=== PATIENT | male | born 1990 | race Caucasian/White ===

== ENCOUNTER 2024-09-14 08:18 | Emergency (ER) | payer OTHER, SELFPAY ==
--- NOTE | ~2024-09-14 | XR_ITS ---
EXAMINATION: XR chest 2V 09/14/2024 09:12 INDICATION: Cough and chest congestion PROCEDURE: 2 view chest COMPARISON: No prior studies for comparison. FINDINGS: The lungs are clear. The cardiomediastinal silhouette is within normal limits. There are no pleural effusions. There is no pneumothorax suspected. IMPRESSION: 1: NO ACUTE CARDIOPULMONARY DISEASE. Reviewed, dictated and finalized at location A.
[2024-09-14 08:39] VITALS: BP 155/104; PULSE 102; RESP 16; TEMP 36.6; O2SAT 98
--- NOTE | 2024-09-14 09:03 | ED_ITS ---
HPI - URI/Sore Throat General Chief Complaint: Upper Respiratory Infection Stated Complaint: SORE THROAT Time Seen by Provider: 09/14/24 09:00 Source: patient and RN notes reviewed Mode of arrival: ambulatory Limitations: no limitations History of Present Illness HPI Narrative: 33-year-old male presents Express Care complaining of upper respiratory symptoms for 2 weeks. Patient reports having cough, chest congestion, mucopurulent sputum, and a sore throat over the last 2 weeks. He feels like his symptoms are worsening does not feel like he is getting much better. Patient denies any chest pain or shortness of breath, ear pain, fevers, body aches, chills, nausea, vomiting, diarrhea. Patient states he has a history of hypertension, depression, anxiety. Related Data Home Medications ?Medication ?Instructions ?Recorded ?Confirmed ?Last Taken ?Type albuterol sulfate 90 mcg/actuation inhalation 09/14/24 Unknown History aerosol inhaler amlodipine 5 mg tablet mg 09/14/24 Unknown History bupropion HCl 150 mg 24 hr tablet, mg PO 09/14/24 Unknown History extended release escitalopram oxalate 10 mg tablet mg 09/14/24 Unknown History losartan 50 mg tablet mg 09/14/24 Unknown History Allergies Allergy/AdvReac Type Severity Reaction Status Date / Time cefprozil (From Cefzil) Allergy Intermediate Rash Verified 09/14/24 08:52 Review of Systems Review of Systems: CONSTITUTIONAL: Denies fever, chills, body aches, or sweats. EYES: Denies visual changes, redness, or discharge. ENT: Negative for rhinorrhea, congestion, or otalgia. Positive for sore throat. CARDIOVASCULAR: Denies chest pain, palpitations, or edema. RESPIRATORY: Positive for cough and chest congestion. Negative for dyspnea. GASTROINTESTINAL: Denies abdominal pain, nausea, vomiting, or diarrhea. GENITOURINARY: Denies dysuria or hematuria. SKIN: Denies rash or itching. MUSCULOSKELETAL: Denies back pain, joint pain, or myalgia. NEUROLOGIC: Denies headache, numbness, or weakness. PSYCHIATRIC: Denies anxiety or depression. All other systems reviewed are negative, except as documented in HPI. PMFSH Comments At the time of my signature, I reviewed and agree with the nursing past medical, surgical, social, and family history. There is no relevant family history pertinent to the patient complaint. Exam Narrative: GENERAL: This is a well-nourished, well-developed adult, in no apparent distress. They are non ill-appearing, nontoxic appearing. HEAD: normocephalic, atraumatic. EYES: Sclera clear/white. Vision is grossly intact. Conjunctiva normal bilaterally. Extraocular movements intact. EARS: External ears normal, auditory canals clear and without drainage, TMs without erythema or perforation. Hearing grossly intact. NOSE: External nose normal with no obvious nasal discharge, nasal turbinates erythemic without swelling, no rhinorrhea. THROAT: Mucous membranes moist, posterior pharynx erythematous without exudate. Uvula is midline. Postnasal drip present. NECK: Neck supple, non-tender without lymphadenopathy, masses or thyromegaly. CARDIOVASCULAR: Regular rate and rhythm without murmurs, gallops, or rubs. RESPIRATORY: Clear to auscultation. Breath sounds equal bilaterally. No wheezes, rales, or rhonchi. SKIN: warm, Dry, intact with no suspicious lesions or rash, good texture and turgor. NEURO: awake, alert, and oriented to person, place and time. There were no obvious focal neurologic abnormalities. EXTREMITIES: No joint tenderness, effusion, or edema noted. BACK: Nontender without deformity. Course Course Emergency Course: Portions of this record may have been created with voice recognition software Level of Care: Express Care Visit Vital Signs Vital signs: Vital Signs Temperature 97.9 F 09/14/24 08:39 Pulse Rate 102 H 09/14/24 08:39 Respiratory Rate 16 09/14/24 08:39 Blood Pressure 155/104 H 09/14/24 08:39 Pulse Oximetry 98 09/14/24 08:39 Temperature 97.9 F 09/14/24 08:39 Pulse Rate 102 H 09/14/24 08:39 Respiratory Rate 16 09/14/24 08:39 Blood Pressure 155/104 H 09/14/24 08:39 Pulse Oximetry 98 09/14/24 08:39 MDM - URI/Sore Throat MDM Narrative Medical decision making narrative: Rapid strep negative. Throat culture pending. Chest x-ray showed. Given patient's symptoms is likely has the purulent bronchitis. Will treat empirically with doxycycline. Discussed physical exam findings. Advised supportive measures and signs/symptoms to go to the ER. Pt is appropriate for outpt treatment and f/u. Differential Diagnosis Differential diagnosis: Likely upper respiratory infection, sinusitis, pharyngitis and other (Pneumonia) Lab Data Attestation: I reviewed the patient's lab results. Labs: Lab Results 09/14/24 Range/Units 09:41 POC Grp A Strep Screen Negative (Negative) Discharge Plan Discharge Clinical Impression: Acute purulent bronchitis Patient Disposition: Home Condition: Stable Instructions: Antibiotic Form, Acute Bronchitis (ED) Additional Instructions: Your rapid strep was negative. Throat culture will be sent off and it is positive we will contact you if it is positive. Your chest x-ray was negative for any evidence of pneumonia or acute findings. Please take the doxycycline as directed. Please wear sunscreen while taking doxycycline if you are going to be outside. You may take Tylenol and ibuprofen as needed for pain or fevers. Drink plenty of fluids and rest. Follow-up with PCP in 3-5 days. If your symptoms worsen, developed chest pain, shortness of breath, or fevers please go to the ER. Patient Language: Latvian Prescriptions: New doxycycline monohydrate 100 mg capsule 100 mg PO BID 7 Days Qty: 14 0RF No Action losartan 50 mg tablet amlodipine 5 mg tablet albuterol sulfate 90 mcg/actuation HFA aerosol inhaler INHALATION escitalopram oxalate 10 mg tablet bupropion HCl 150 mg tablet extended release 24 hr PO Follow-up/Referrals: Daniella,MD Ajay [Primary Care Provider] - Time of Disposition: 09:37
[2024-09-14 09:43] LABS: EDSTREPNEGPOS1 Negative (Negative)
== END 2024-09-14 09:40 | disposition home or self-care (01) ==
PROVIDERS: PCP Family Medicine
DX: J20.9 Acute bronchitis, unspecified (principal); I10 Essential (primary) hypertension
CPT/HCPCS: 71046; 87081; 87880; 99213; G0463